=== PATIENT | male | born 1960 | race Caucasian/White ===

== ENCOUNTER 2016-07-10 22:47 | Emergency (ER) | payer SELFPAY ==
[2016-07-10 22:56] VITALS: BP 112/73; PULSE 81; RESP 18; TEMP 98.5; O2SAT 98
--- NOTE | 2016-07-10 23:11 | ED PDOC ---
HPI: Male Pain Time Seen by Provider: 07/10/16 22:58 Chief Complaint (Nursing): Male Genitourinary Chief Complaint (Provider): dysuria History Per: Patient History/Exam Limitations: no limitations Additional Complaint(s): 56yo in ED for eval of two [id number] with urination and lower abd pain x 2 week without hematuira nausea vomiting fever or chills. Pt also c/o of left knee pain x 2 years noted to become worse [place]. [place] advil but only relieved for a couple of hours. Past Medical History Reviewed: Historical Data, Nursing Documentation, Vital Signs Vital Signs: Last Vital Signs Temp 98.5 F 07/10/16 22:50 Pulse 81 07/10/16 22:50 Resp 18 07/10/16 22:50 BP 112/73 07/10/16 22:50 Pulse Ox 98 07/10/16 22:50 - Medical History PMH: No Chronic Diseases - Surgical History Surgical History: Appendectomy - Family History Family History: States: No Known Family Hx - Home Medications Home Medications: Ambulatory Orders Medication Instructions Recorded Ciprofloxacin HCl [Cipro] 500 mg PO BID #13 tab 03/11/15 Ibuprofen 600 mg PO Q6H PRN #15 tab 03/11/15 Phenazopyridine HCl [Pyridium] 100 mg PO TID PRN #5 tab 03/11/15 Cyclobenzaprine [Cyclobenzaprine 10 mg PO BID #14 tab 07/10/16 HCl] Ibuprofen [Motrin] 400 mg PO Q6 #30 tab 07/10/16 - Allergies Allergies/Adverse Reactions: Allergies Allergy/AdvReac Type Severity Reaction Status Date / Time No Known Allergies Allergy Verified 03/10/15 23:32 Review of Systems ROS Statement: Except As Marked, All Systems Reviewed And Found Negative Genitourinary Male: Positive for: Dysuria Musculoskeletal: Positive for: Other (knee pain) Physical Exam - Reviewed Nursing Documentation Reviewed: Yes Vital Signs Reviewed: Yes - Physical Exam Appears: Positive for: Well, Non-toxic, No Acute Distress Head Exam: Positive for: ATRAUMATIC, NORMAL INSPECTION, NORMOCEPHALIC Skin: Positive for: Normal Color, Warm, DRY Cardiovascular/Chest: Positive for: Regular Rate, Rhythm Respiratory: Positive for: CNT, Normal Breath Sounds Gastrointestinal/Abdominal: Positive for: Bowel Sounds, Soft, Tenderness ( suprapubic tendnerness). Negative for: Distended, Guarding Back: Negative for: L CVA Tenderness, R CVA Tenderness Extremity: Positive for: Other (left knee: deofmirty noted deu to poor surigcal healnng. no acute injury or swellig noted. no penitentiary tendenress . limited RO of knee. ). Negative for: Capillary Refill Neurologic/Psych: Positive for: Alert, Oriented - Laboratory Results Urine dip results: Negative for: Leukocyte Esterase, Blood, Nitrate, Ketones, Glucose, Bilirubin, Protein - ECG O2 Sat by Pulse Oximetry: 98 - Progress ED Course And Treament: pt will get US and torodol IM inj as req. for pain. Medical Decision Making Medical Decision Making: PT with negative UA-will be treated for chronic knee pain via torodol and advised to f.u with pmd for prostate examination as this may be the cause of dyrusia. pt understands and agrees Disposition - Clinical Impression Clinical Impression: Urinary hesitancy, Leg pain, left - Patient ED Disposition Is Patient to be Admitted: No Counseled Patient/Family Regarding: Studies Performed, Diagnosis, Need For Followup, Rx Given - Disposition Referrals: [facility] [place] [Outside] [facility] [place] [Outside] Disposition: Routine/Home Disposition Time: 23:37 Condition: STABLE Prescriptions: Cyclobenzaprine [Cyclobenzaprine HCl] 10 mg PO BID #14 tab Ibuprofen [Motrin] 400 mg PO Q6 #30 tab Instructions: Knee Pain (ED), Benign Prostatic Hypertrophy (ED) Print Language: CROATIAN
[2016-07-10 23:32] LABS: RBC URINE 1 /hpf (0-3); URINE BILIRUBIN NEGATIVE (NEGATIVE); URINE BLOOD SMALL (NEGATIVE); URINE COLOR YELLOW (YELLOW); URINE GLUCOSE (UA) NEG (Normal); URINE KETONE NEGATIVE (NEGATIVE); URINE LEUKOCYTE ESTERASE NEG Leu/uL (Negative); URINE PROTEIN NEGATIVE (NEGATIVE); URINE UROBILINOGEN 0.2-1.0 mg/dL (0.2-1.0); WBC URINE 1 /hpf (0-5)
== END 2016-07-10 23:57 | disposition home or self-care (01) ==
LOC: H.ER 22:47
DX: M79.605 Pain in left leg (principal); R39.11 Hesitancy of micturition; M25.562 Pain in left knee; R30.0 Dysuria; R10.9 Unspecified abdominal pain
CPT/HCPCS: 81003; 96372; 99283; J1885